=== PATIENT | male | born 1935 | race Caucasian/White ===

== ENCOUNTER 2016-12-27 09:30 | Day surgery (SDC) | payer MEDICARE, BC ==
[~2016-12-27] VITALS: Ht 172.7 cm; Wt 81.6 kg
[~2016-12-27 09:30] MED LIST: ASPIRIN325 MG PO; CALCIUM + D SO1 EACH PO; CELEBREX200 MG PO; NAMENDA5 MG PO; NORCO 325-5 MG1 TAB PO; PRILOSEC20 MG PO; PRINIVIL10 MG PO
== END 2016-12-27 14:25 | disposition short-term general hospital (02) ==
LOC: SURGOP 09:30
PROC: 08RJ3JZ Replacement of Right Lens with Synthetic Substitute, Percutaneous Approach (ICD-10-PCS; principal; 2016-12-27)
DX: H26.9 Unspecified cataract (principal); M19.90 Unspecified osteoarthritis, unspecified site; I10 Essential (primary) hypertension; K21.9 Gastro-esophageal reflux disease without esophagitis; Z96.1 Presence of intraocular lens; Z88.1 Allergy status to other antibiotic agents; Z88.8 Allergy status to other drugs, medicaments and biological substances; Z88.6 Allergy status to analgesic agent; Z79.899 Other long term (current) drug therapy
CPT/HCPCS: J0171; J3473; V2632